=== PATIENT | female | born 1965 | race Hispanic/Latino ===

== ENCOUNTER 2016-10-09 14:55 | Emergency (ER) | payer OTHER ==
[~2016-10-09] VITALS: Ht 162.6 cm; Wt 73.5 kg
--- NOTE | 2016-10-09 17:43 | ED GENERAL ADULT ---
History of Present Illness General Chief Complaint: Skin Rash/ Abcess Stated Complaint: "PCP TOLD ME I MIGHT HAVE CANCER", FACE RASH Source: patient, old records Exam Limitations: no limitations Vital Signs & Intake/Output Vital Signs & Intake/Output Vital Signs Date Time Temp Pulse Resp B/P Pulse O2 O2 Flow FiO2 Ox Delivery Rate 10/09 1921 97.0 70 16 178/98 99 10/09 1812 198/100 10/09 1801 198/100 10/09 1517 98.3 74 16 212/116 100 Room Air ED Intake and Output 10/10 0000 10/09 1200 Intake Total Output Total Balance Patient 162 lb Weight Allergies Coded Allergies: No Known Allergies (10/09/16) Reconcile Medications Hydrochlorothiazide 25 MG TABLET 1 TAB PO DAILY htn [UNKNOWN] (Reported) Triage Note: PT SENT TO ED BY [facility] FOR EVALUATION FOR POTENTIAL "SKIN CANCER" PT HAS A SMALL AREA OF DARK PIGMENTATION BY HER R EAR, REPORTS IT HAS BEEN THERE FOR APPROX 6 MONTHS. PT FOUND TO BE HTN IN TRIAGE AT 212/118, DENIES ANY PMH OF HTN AND DENIES ANY CP, SOB, NOSE BLEEDS, HEADACHE. Triage Nurses Notes Reviewed? yes Onset: Gradual Duration: week(s): Timing: recent history Injury Environment: home Severity: mild Severity Numbers: 2 No Modifying Factors: none Associated Symptoms: denies HPI: 50-year-old female with no medical history of present emergency room for evaluation sent in by walk in center to have a biopsy performed of a rash that she's had on the right side of her face for the past 6 months. She denies any known injury or trauma. She has not sought care for the symptoms until today. The patient is found to be hypertensive in triage. She denies history of hypertension. She is currently on unknown antibiotic for sore throat. The patient states that they did not check her blood pressure at urgent care ([facility]) Past History Travel History Traveled to [place] past 21 day No Medical History Any Pertinent Medical History? none Neurological: NONE EENT: NONE Cardiovascular: NONE Respiratory: NONE Gastrointestinal: NONE Hepatic: NONE Renal: NONE Musculoskeletal: NONE Psychiatric: NONE Endocrine: NONE Blood Disorders: NONE Cancer(s): NONE Surgical History Surgical History: none Psychosocial History What is your primary language Indian Tobacco Use: Never used ETOH Use: denies use Illicit Drug Use: denies illicit drug use Family History Hx Contributory? No ([facility]) Review of Systems Review of Systems Constitutional: Reports: see HPI. All Other Systems: Reviewed and Negative Comments Review of systems: See HPI, All other systems negative. Constitutional, no chills no fever, no malaise HEENT: No visual changes no sore throat no congestion Cardiovascular: No chest pain , no palpitation Skin, see hpi Respiratory: No dyspnea no cough no sputum GI: No nausea no vomiting, no diarrhea : No dysuria Muscle skeletal: No joint pain, no back pain, no neck pain, Neurologic: No numbness no headache Psych: No stress Heme/endocrine: No bruising no bleeding Immunology: No lymphadenopathy ([facility]) Physical Exam Physical Exam General Appearance: well developed/nourished, no apparent distress, alert, awake , comfortable Comments: Well-developed well-nourished person in no acute distress HEENT: Normal EENT exam; PERRL, EOMI, no nystagmus. HEAD is atraumatic. moist mucous membranes. Pharynx is mildly erythematous no tonsillar exudate or swelling no trismus no uvula displacement Neck: Supple, no lymphadenopathy, normal range of motion Back: Nontender, no CVA tenderness. Full range of motion Cardiovascular: Regular rate and rhythms no murmurs rubs Respiratory: No respiratory distress. Patient speaking in full complete sentences. Breath sounds clear to auscultation bilaterally: NO W/R/R Abdomen: Soft, nontender Extremity: No edema, full range of motion of extremities Neuro: Alert oriented x3, motor sensory normal, There were no obvious focal neurologic abnormalities. Skin: There is a scaly 2 cm rash noted to the right side of her face, there is no eschar there is no bleeding nontender no surrounding swelling, skin is warm and dry. Psych: Mood and affect is normal, memory and judgment is normal. Core Measures ACS in differential dx? No CVA/TIA Diagnosis: No Severe Sepsis Present: No Septic Shock Present: No ([facility]) Progress Differential Diagnoses I considered the following diagnoses in my evaluation of the patient: Hypertensive urgency versus emergency electrolyte abnormality acute kidney injury Plan of Care: Orders Procedure Date/time Status CBC WITHOUT DIFFERENTIAL 10/09 1800 Complete BASIC METABOLIC PANEL 10/09 1800 Complete Laboratory Tests 10/09/16 1810: Anion Gap 13, Estimated GFR > 60, BUN/Creatinine Ratio 25.0, Glucose 87, Calcium 9.3, CBC w Diff NO MAN DIFF REQ, RBC 4.81, MCV 71.3 L, MCH 23.3 L, RDW 15.3 H , MPV 8.1, Gran % 51.6, Lymphocytes % 37.3, Monocytes % 7.3, Eosinophils % 3.2, Basophils % 0.6, Absolute Granulocytes 4.0, Absolute Lymphocytes 2.9, Absolute Monocytes 0.6, Absolute Eosinophils 0.2, Absolute Basophils 0, PUBS MCHC 32.7 L Patient remains hypertensive manually, labs ordered medically of amlodipine hydrochlorothiazide 10/09/2016 7:22:48 PM on repeat evaluation blood pressure 178/98 Information was provided for follow-up with dermis as well as primary care. Discussed with her leave the harm of elevated blood pressure prescription for hydrochlorothiazide was provided I did. She'll follow up with primary care provided ([facility]) Initial ED EKG: none ([facility]) Departure Departure Disposition: HOME OR SELF CARE Condition: Stable Clinical Impression Primary Impression: Skin lesion Secondary Impressions: HTN (hypertension) Referrals: MARGY MACIAS APRN (PCP/Family) Additional Instructions: hydrochlorothiazde as directed- this is for your blood pressure. Follow up with director long term care dr montero as well as primary care physician to have your blood pressure rechecked as it was elevated here today. Return anytime sooner with any concerns Departure Forms: Customer Survey General Discharge Information Prescriptions: Current Visit Scripts Hydrochlorothiazide 1 TAB PO DAILY #30 TAB ([facility]) PA/SHEEP KILLER Co-Sign Statement Statement: ED Attending supervision documentation- [] I saw and evaluated the patient. I have also reviewed all the pertinent lab results and diagnostic results. I agree with the findings and the plan of care as documented in the PA's/SHEEP KILLER's documentation. [x] I have reviewed the ED Record and agree with the PA's/SHEEP KILLER's documentation. [] Additions or exceptions (if any) to the PAs/SHEEP KILLER's note and plan are summarized below: [] (BE LEON,FLORES Taylor) Critical Care Note Critical Care Note Critical Care Time: non-applicable ([facility])
[2016-10-09] MEDS ORDERED: HYDROCHLOROTHIA25 M1 PO (18:04)
[2016-10-09 18:39] LABS: ABSOLUTE BASOPHIL COUNT 0 /CUMM (0.0-0.2); ABSOLUTE EOSINOPHIL COUNT 0.2 /CUMM (0.0-0.7); ABSOLUTE LYMPH COUNT 2.9 /CUMM (1.2-3.4); ABSOLUTE MONOCYTE COUNT 0.6 /CUMM (0.10-0.60); BASOPHIL % 0.6 % (0.0-2.0); EOSINOPHIL % 3.2 % (0-5); GRANULOCYTE % 51.6 % (42.2-75.2); HEMATOCRIT 34.3 % (37-47); MEAN CORPUSCULAR HGB 23.3 PG (27.0-31.0); MEAN CORPUSCULAR HGB CONC 32.7 G/DL (33.0-37.0); MEAN CORPUSCULAR VOLUME 71.3 FL (81.0-99.0); MEAN PLATELET VOLUME 8.1 FL (7.4-10.4); PLATELET COUNT 318 /CUMM (130-400); RBC DISTRIBUTION WIDTH 15.3 % (11.5-14.5); RED BLOOD CELL CT 4.81 /CUMM (4.20-5.40); WHITE BLOOD CELL COUNT 7.8 /CUMM (4.8-10.8)
[2016-10-09 19:22] VITALS: BP 178/98
== END 2016-10-09 19:38 ==
LOC: ERH 14:55
PROVIDERS: Physician Assistant Medical
DX: L98.9 Disorder of the skin and subcutaneous tissue, unspecified (principal); I10 Essential (primary) hypertension